=== PATIENT | male | born 1975 | race African-American/Black ===

== ENCOUNTER 2018-06-07 05:49 | Day surgery (SDC) | payer OTHER ==
[~2018-06-07] VITALS: Ht 177.8 cm; Wt 122.0 kg
--- NOTE | ~2018-06-07 | O ---
[facility] [place] [address] OPERATIVE REPORT Name: TITI ALLEN Room #: 150-6 [facility]#: [id number] Admission: 06/07/18 ������������������ Attend Phys: Abhishek Rosas MD Discharge: ������������������ Date of : 71 Report #: [id number] THIS REPORT FOR: //name// CC: Physician staff DELLA Rosas DATE OF SERVICE: 06/07/[address] Abhishek Rosas and Dr. Della Davies. PREOPERATIVE DIAGNOSIS: Right inguinal hernia. POSTOPERATIVE DIAGNOSES: Right inguinal hernia with a right cord lipoma. PROCEDURE: Right inguinal hernia repair with Prolene hernia system mesh and excision of right cord lipoma. SURGEON: Abhishek Rosas MD. ANESTHESIA: Local IV sedation. DESCRIPTION OF PROCEDURE: The patient was brought to the operating room and placed on operative table in the supine position. Sequential compression devices were in place for DVT prophylaxis. There was no indication for preoperative antibiotics. The patient underwent IV sedation. Right inguinal area was then prepped and draped in a sterile fashion. Skin and subcutaneous tissue were then infiltrated with 0.5% Marcaine and 1% Xylocaine in a 1:1 mixture. Right inguinal skin incision was then performed using a #10 scalpel blade. Hemostasis obtained using electrocautery. Dissection was carried down through the subcutaneous tissue to the external oblique fascia, which was then incised with a knife and opened with the Metzenbaum scissors. The ilioinguinal nerve was identified, dissected free, injected with a local mixture and preserved. The cord was then elevated and held into place with a Dora drain. Cremasteric muscle fibers then split in the direction of their fibers using a clamp and electrocautery. A cord lipoma was identified, dissected free, clamped, excised and tied with a 2-0 chromic tie and sent as specimen to pathology. An indirect inguinal hernia sac was identified and dissected free and reduced back through the internal ring. The floor was inspected and found to be intact. An extended Prolene hernia system mesh was then inserted through the internal ring and the underlay patch was then deployed in the preperitoneal space. Connector was left in the internal ring and the overlay patch was then deployed into the inguinal canal. The mesh was secured at the pubic tubercle superiorly and at the connector using simple interrupted 2-0 Vicryl sutures. The mesh was split and wrapped around the cord, secured to the inguinal ligament [address] [address] OPERATIVE REPORT Name: TITI ALLEN Room #: 150-6 [facility]#: [id number] Admission: 06/07/18 ������������������ Attend Phys: Abhishek Rosas MD Discharge: ������������������ Date of : 71 Report #: [id number] with simple interrupted 2-0 Vicryl suture. The cord and ilioinguinal nerve were then returned to the canal intact. The external oblique fascia was then closed using running 2-0 Vicryl suture. Emilee fascia was then reapproximated using 3 simple interrupted 2-0 chromic sutures and the skin then closed with a running 4-0 subcuticular Vicryl stitch. The wound was then dressed with Mastisol, 1/2-inch Steri-Strips cut in half, Telfa, 4 x 4 gauze, sponge and tape. The patient was then taken to the recovery room awake, alert and in good condition. Estimated blood loss was approximately 5 mL, and the patient tolerated procedure well. All sponge, lap and instrument counts correct x 2. ��������������������������������������������� ���������������������������������������� By: ��������������������������������������������� 1033 1159 Abhishek Rosas MD /nt
[~2018-06-07 05:49] MED LIST: AMLODIPINE BESY10 MG PO; BENAZEPRIL HCL20 MG PO; CHLORTHALIDONE25 MG PO; PROAIR HFA8.5 GM INH; UNICOMPLEX M TA1 TA1 PO; VITAMIN D2000 UNIT PO
[2018-06-07 07:49] VITALS: BP 119/77
--- NOTE | 2018-06-07 08:09 | EKG ---
[address] [address] ELECTROCARDIOGRAM REPORT Name: TITI ALLEN Room #: 150-6 [facility]#: [id number] ������������������ Admission: 06/07/18 ������������������ Attend Phys: Abhishek Rosas MD Discharge: ������������������ Date of : 71 Report #: [id number] ����������������������������������������������������������������� [id number] THIS REPORT FOR: //name// [facility] Test Date: 2018-06-07 Test Time: 06:35:25 Pat Name: TITI ALLEN Department: Room: 150 6 Gender: M [employer] Law Clerk: SCARLETT : 1975 Requested By: Abhishek Rosas Order Number: [id number] MD: Simon Pretty Measurements Intervals [place]worth Rate: 57 P: 44 WI: 175 QRS: 34 QRSD: 93 T: 37 QT: 414 QTc: 403 Interpretive Statements Sinus bradycardia Normal tracing Compared to ECG 11/18/2015 08:22:53 No significant change was found Electronically Signed On 06-07-2018 8:09:06 CDT by Simon Pretty [email or web address] ��������������������������������������������� <ELECTRONICALLY SIGNED> ���������������������������������������� By: Simon Pretty MD, [facility] ��������������������������������������������� 06/07/18 0809 4 4 Simon Pretty MD, FACC /EPI
[2018-06-07] MEDS ORDERED: NORCO 5-325 TA1 EACH PO (09:02)
[2018-06-07 10:17] VITALS: BP 119/77
--- NOTE | 2018-06-08 16:06 | PATH ---
[facility] [address] [place] [address] PATHOLOGY RPT PROCEDURE Name: HUY ALLEN Room #: DEP [facility].#: [id number] ������������������ Admission: 06/07/18 ������������������ Date of : 71 Discharge: 06/07/18 Report #: [id number] Path Case #: [id number] [facility] Accession Number: [id number] . 01 Material submitted: . CORD LIPOMA . 01 Clinical history: . Right inguinal hernia . 02 Diagnosis: Mature adipose tissue, cord lipoma, resection: - Compatible with a lipoma. (IUV/db; 06/08/2018) LBQ/06/08/2018 . 02 Electronically signed: . Sylvia Mcintyre MD, Pathologist NPI- [id number] . 01 Gross description: . The specimen is received in formalin, labeled "Huy Allen, cord lipoma", is an elongated yellow, lobulated adipose tissue partially covered by a thin bearden-white membrane measuring 7.0 x 2.2 x 1.2 cm. Sectioning reveals a yellow lobulated cut surface with no discrete hemorrhage or necrosis. [employer] section is submitted in A1-A2. (SWS; 06/07/2018) SHS/SHS . 02 Pathologist provided ICD-10: D17.79 . 02 CPT . 642915 Specimen Comment: A courtesy copy of this report has been sent to Specimen Comment: [phone], . Specimen Comment: Report sent to / DR CASTRO Performed at: [address], [place], [place] [id number] MD Isrrael Abdullahi MD Phone: [phone] Performed at: [address] [id number] MD Sylvia Mcintyre MD Phone: [phone]
== END 2018-06-07 11:09 | disposition home or self-care (01) ==
LOC: TBA 05:49 → OR 05:49
DX: K40.90 Unilateral inguinal hernia, without obstruction or gangrene, not specified as recurrent (principal); D17.6 Benign lipomatous neoplasm of spermatic cord; J45.909 Unspecified asthma, uncomplicated; G47.33 Obstructive sleep apnea (adult) (pediatric); Z90.49 Acquired absence of other specified parts of digestive tract; Z98.890 Other specified postprocedural states; Z79.899 Other long term (current) drug therapy; Z88.8 Allergy status to other drugs, medicaments and biological substances
CPT/HCPCS: 50010; 50101; 50386; 50417; 54111; 56524; 56526; 56528; 62110; 62850; 70005

== ENCOUNTER 2019-05-23 06:19 | Day surgery (SDC) | payer OTHER ==
[~2019-05-23] VITALS: Ht 177.8 cm; Wt 122.5 kg
--- NOTE | ~2019-05-23 | O ---
[facility] [place] [address] OPERATIVE REPORT Name: TITI ALLEN Room #: 150-2 [facility]#: [id number] Admission: 05/23/19 Attend Phys: Abhishek Rosas MD Discharge: Date of : 71 Report #: [id number] THIS REPORT FOR: cc: Della Davies MD,Della Rosas,Abhishek Israel MD ~ CC: Della Rosas DATE OF SERVICE: 05/23/2019 PATIENT OF: Dr. Abhishek Rosas and Dr. Della Davies. PREOPERATIVE DIAGNOSIS: Left inguinal hernia. POSTOPERATIVE DIAGNOSIS: Left inguinal hernia. PROCEDURE: Left inguinal hernia repair with Prolene hernia system mesh. SURGEON: Abhishek Rosas MD ANESTHESIA: Local IV sedation. DESCRIPTION OF PROCEDURE: The patient was brought to the operating room and placed on operative table in the supine position. Sequential compression devices were in place for DVT prophylaxis. There was no indication for preoperative antibiotics. The patient underwent IV sedation. Left inguinal area was prepped and draped in a sterile fashion. Skin and subcutaneous tissue were then infiltrated with 0.5% Marcaine and 1% Xylocaine in a 1:1 mixture. Left inguinal skin incision was then performed using #10 scalpel blade. Hemostasis obtained using electrocautery. Dissection was carried down through subcutaneous tissue. Further hemostasis was obtained with clamps and 2-0 chromic ties. The external oblique fascia was then identified and incised with a knife and opened with the Metzenbaum scissors. The ilioinguinal nerve was identified, dissected free, injected with a local mixture and preserved. The cord was then elevated, held into place with [place] drain. Cremasteric muscle fibers were then split in the direction of their fibers using a clamp and electrocautery. An indirect inguinal hernia sac was identified, dissected free and reduced back through the internal ring. The floor was inspected and was found to be intact, but was markedly weakened with a dilated internal ring. I performed two layer running Bassini repair using 2-0 Prolene suture tightening the internal ring around the connector on the mesh. The overlay patch was then deployed in the inguinal canal and the mesh was secured at the pubic tubercle with the same running 2-0 Prolene suture. It was then secured superiorly and at the connector using simple interrupted 2-0 Vicryl sutures. The mesh was split [address] [address] OPERATIVE REPORT Name: TITI ALLEN Room #: 150-2 [facility]#: [id number] Admission: 05/23/19 Attend Phys: Abhishek Rosas MD Discharge: Date of : 71 Report #: [id number] and wrapped around the cord, secured to the inguinal ligament with simple interrupted 2-0 Vicryl suture. The cord and ilioinguinal nerve were then returned to the canal intact. The external oblique fascia was then closed using running 2-0 Vicryl suture. Emilee's fascia was then reapproximated using 3 simple interrupted 2-0 chromic sutures and the skin then closed with a running 4-0 subcuticular Vicryl stitch. The wound was then dressed with Mastisol, 1/2-inch Steri-Strips cut in half, Telfa, 4 x 4 gauze, sponge and tape. The patient was then taken to the recovery room awake, alert, in good condition. Estimated blood loss was approximately 5-10 mL and the patient tolerated procedure well. All sponge, lap and instrument counts correct x 2. By: 0933 0947 Abhishek Rosas MD /nt
[~2019-05-23 06:19] MED LIST changes: +BARIATRIC MV-I1 EACH PO; +NORCO 5-325 TA1 EACH PO
[2019-05-23 07:07] VITALS: BP 134/78
[2019-05-23] MEDS ORDERED: NORCO 5-325 TA1 EAC1 PO (08:13)
--- NOTE | 2019-05-23 09:35 | H ---
[facility] [place] [address] HISTORY AND PHYSICAL Name: TITI ALLEN Room #: 150-2 [facility]..#: [id number] Admission: 05/23/19 Attend Phys: Abhishek Rosas MD Discharge: Date of : 71 Report #: [id number] THIS REPORT FOR: cc: Della Davies MD,Della Rosas,Abhishek Israel MD ~ CC: Della Rosas DATE OF SERVICE: 05/23/2019 CHIEF COMPLAINT: Left groin bulge. HISTORY OF PRESENT ILLNESS: The patient is a 44-year-old male who underwent a right inguinal hernia repair about a year ago in 05/2018. A couple of months ago, he started noticing a bulge on the left side. He does notice some discomfort with activity. He denies any recent changes in bowel or bladder habits. No problems with right inguinal hernia repair from a year ago. He saw Dr. Davies, who recommend surgical consultation. PAST MEDICAL HISTORY: Osteoarthritis, degenerative joint disease, asthma, hyperlipidemia, hypertension, gastric bypass surgery 02/2018, right inguinal hernia repair with Prolene mesh and excision of cord lipoma in 05/2018. MEDICATIONS: ProAir 2 puffs p.o. q. 6 hours p.r.n., albuterol nebulizer t.i.d. p.r.n. ALLERGIES: NAPROSYN. FAMILY HISTORY: Noncontributory. SOCIAL HISTORY: Does not smoke, drinks alcohol occasionally. He is . REVIEW OF SYSTEMS: Pertinent positives as above. Full review of systems as per the electronic medical record as reviewed by myself. PHYSICAL EXAMINATION: GENERAL: This is a well-developed, well-nourished male in no acute distress. VITAL SIGNS: Stable. He is afebrile. HEENT: Unremarkable. LUNGS: Clear to auscultation bilaterally. No wheezes or rhonchi. CARDIOVASCULAR: Regular rate and rhythm. No murmurs, S3, S4, no PMI. ABDOMEN: Obese, soft, flat and nontender. No palpable masses, no organomegaly. He has a large pannus from weight loss. There is a well-healed right inguinal hernia incision scar. [address] [address] HISTORY AND PHYSICAL Name: TITI ALLEN Room #: 150-2 [facility].#: [id number] Admission: 05/23/19 Attend Phys: Abhishek Rosas MD Discharge: Date of : 71 Report #: [id number] GENITOURINARY: Normal scrotum, phallus and testes. There is a partially reducible tender left inguinal hernia. EXTREMITIES: No clubbing, cyanosis or edema. NEUROLOGIC: Intact with a clear mental status. IMPRESSION: A 44-year-old male with a left inguinal hernia. I fully discussed with the patient and his the diagnosis, prognosis, and treatment options. They state they understand and wish to proceed with surgery. PLAN: We will perform a left inguinal hernia repair with mesh under local IV sedation as an outpatient at [facility]. The procedure and its risks, benefits and possible complications including use of mesh, fully discussed with the patient and his . They state they understand and agreed to proposed surgery. <ELECTRONICALLY SIGNED> By: Abhishek Rosas MD 05/23/19 0935 [id number] [id number] Abhishek Rosas MD /nt
== END 2019-05-23 10:49 | disposition home or self-care (01) ==
LOC: OR 06:19 → TBA 06:22 → OR 07:39
DX: K40.90 Unilateral inguinal hernia, without obstruction or gangrene, not specified as recurrent (principal); I10 Essential (primary) hypertension; E78.5 Hyperlipidemia, unspecified; M19.90 Unspecified osteoarthritis, unspecified site; J45.909 Unspecified asthma, uncomplicated; Z98.890 Other specified postprocedural states; Z79.899 Other long term (current) drug therapy; Z98.84 Bariatric surgery status; Z88.8 Allergy status to other drugs, medicaments and biological substances
CPT/HCPCS: 50010; 50101; 50386; 50417; 54111; 56524; 56525; 56526; 56528; 70005